=== PATIENT | female | born 1985 | race Caucasian/White ===

== ENCOUNTER 2019-12-02 14:55 | Emergency (ER) | payer OTHER, SELFPAY ==
[2019-12-02 15:06] VITALS: BP 126/86; PULSE 78; RESP 16; TEMP 37; O2SAT 98
--- NOTE | 2019-12-02 15:20 | ED.FEMALEGU ---
HPI - Female Genitourinary General Chief complaint: Urogenital-Female Stated complaint: uti Time Seen by Provider: 12/02/19 15:15 Source: patient and RN notes reviewed Mode of arrival: ambulatory Limitations: no limitations History of Present Illness HPI Narrative: Patient presents today complaining of dysuria, frequency, urgency, chills, mild low back pain since yesterday. She is currently menstruating. Denies vaginal discharge other than blood. Denies abdominal pain. She took a dose of Azo 1 hour prior to arrival. No recent antibiotic use. MD elicited complaint: dysuria Related Data Home Medications Medication Instructions Recorded Confirmed norgestrel-ethinyl estradiol tablet 12/02/19 [Low-Ogestrel (28)] Allergies Allergy/AdvReac Type Severity Reaction Status Date / Time No Known Allergies Allergy Mild Verified 05/24/09 03:16 Review of Systems Review of Systems: Narrative: CONSTITUTIONAL: Denies body aches, fever, or sweats.+ Chills EYES: Denies visual changes, redness, or discharge. ENT: Denies rhinorrhea, congestion, sore throat, or otalgia. CARDIOVASCULAR: Denies chest pain, palpitations, or edema. RESPIRATORY: Denies cough or dyspnea. GASTROINTESTINAL: Denies abdominal pain, nausea, vomiting, or diarrhea. GENITOURINARY: Denies hematuria.+ Dysuria, urgency, frequency SKIN: Denies rash, itching, or wounds. MUSCULOSKELETAL: Denies joint pain, or myalgia.+ Low back pain NEUROLOGIC: Denies headache, numbness, tingling, or weakness. PSYCH: Denies depression or anxiety. PMFSH Comments At time of signature, I have reviewed and agree with nursing past medical, surgical, social and family history unless otherwise noted. Please see nursing chart for further information. There is no relevant family history pertinent to the presenting complaint Exam Narrative: Exam Narrative: GENERAL: Well-appearing, well-nourished, and in no acute distress. HEAD: Normocephalic, atraumatic. EYES: EOMI. No redness or drainage. Conjunctivae normal. ENT: Mucous membranes pink and moist. NECK: Normal AROM. CHEST: No respiratory distress. Clear to auscultation. HEART: Regular rate and rhythm. No murmur appreciated. Normal peripheral pulses. ABDOMEN: Soft, nondistended, normal active bowel sounds.+ Mild suprapubic tenderness.-CVAT MUSCULOSKELETAL: No bony tenderness. EXTREMITIES: Normal range of motion. No edema. SKIN: Warm, dry, no rash. Capillary refill normal. Normal skin turgor. NEURO: No focal deficits. Alert and oriented x3. Gait steady. PSYCH: Normal affect. No signs of depression or anxiety. Course Vital Signs Vital signs: Vital Signs Temperature 98.6 F 12/02/19 15:06 Pulse Rate 78 12/02/19 15:06 Respiratory Rate 16 12/02/19 15:06 Blood Pressure 126/86 12/02/19 15:06 Pulse Oximetry 98 12/02/19 15:06 Temperature 98.6 F 12/02/19 15:06 Pulse Rate 78 12/02/19 15:06 Respiratory Rate 16 12/02/19 15:06 Blood Pressure 126/86 12/02/19 15:06 Pulse Oximetry 98 12/02/19 15:06 Reviewed. Pt has been instructed to follow up with her PCP regarding her elevated blood pressure today. MDM - Female Genitourinary Differential Diagnosis Differential diagnosis: Likely urinary tract infection, vaginitis, cystitis and other (Pyelonephritis, kidney stone) Lab Data Attestation: I reviewed the patient's lab results. Labs: Unable to result urine dipstick due to dark orange color of urine. Will send for culture. Critical Care Time Critical Care Time Critical Care Time: No Discharge Plan Discharge Clinical Impression: Urinary tract infection Qualifiers: Urinary tract infection type: acute cystitis Hematuria presence: without hematuria Qualified Code(s): N30.00 - Acute cystitis without hematuria Patient Disposition: Home, Self-Care Condition: Stable Instructions: Antibiotic Form, Urinary Tract Infection in Women (DC) Additional Instructions: Your urine shows infection today.
== END 2019-12-02 15:31 | disposition home or self-care (01) ==
PROVIDERS: Emergency Provider Nurse Practitioner; PCP Family Medicine
DX: N30.00 Acute cystitis without hematuria (principal); Z98.84 Bariatric surgery status
CPT/HCPCS: 87086; 87088; 99213; G0463

== ENCOUNTER 2020-08-14 08:16 | Emergency (ER) | payer OTHER, SELFPAY ==
[2020-08-14 08:33] VITALS: BP 143/83; PULSE 81; RESP 16; TEMP 36.8; O2SAT 99
--- NOTE | 2020-08-14 08:39 | ED.FEMALEGU ---
HPI - Female Genitourinary General Chief complaint: Urogenital-Female Stated complaint: possible uti Source: patient and RN notes reviewed Mode of arrival: ambulatory Limitations: no limitations History of Present Illness HPI Narrative: 34 yo female presents to the urgent care with complaints of urinary symptoms. Patient states that the symptoms woke her up about 12:30 in the morning. Has suprapubic discomfort, urgency, burning, frequency. Patient states she had something similar several months ago. Patient reports that she took some Azo prior to arrival. No CVA tenderness. No chest pain, shortness of breath, fevers, nausea, vomiting or diarrhea Related Data Allergies Allergy/AdvReac Type Severity Reaction Status Date / Time No Known Allergies Allergy Mild Verified 08/14/20 08:28 Review of Systems Review of Systems: Narrative: CONSTITUTIONAL: Denies fever, chills, or sweats. EYES: Denies visual changes, redness, or discharge. ENT: Denies rhinorrhea, congestion, sore throat, or otalgia. CARDIOVASCULAR: Denies chest pain, palpitations, or edema. RESPIRATORY: Denies cough or dyspnea. GASTROINTESTINAL: Denies abdominal pain, nausea, vomiting, or diarrhea. GENITOURINARY: Positive for dysuria, frequency, discoloration, strong smell SKIN: Denies rash or itching. MUSCULOSKELETAL: Denies back pain, joint pain, or myalgia. NEUROLOGIC: Denies headache, numbness, or weakness. PSYCHIATRIC: Denies anxiety or depression. All other systems reviewed are negative, except as documented in HPI. PMFSH Comments At the time of my signature, I reviewed and agree with the nursing past medical, surgical, social, and family history. There is no relevant family history pertinent to the patient complaint. Exam Narrative: Exam Narrative: GENERAL: This is a well-nourished, well-developed patient, in no apparent distress. HEAD: normocephalic, atraumatic. EYES: PERRL. Sclera clear/white. Vision is grossly intact. EARS: External ears normal. CARDIOVASCULAR: Regular rate and rhythm without murmurs, gallops, or rubs. RESPIRATORY: Clear to auscultation. Breath sounds equal bilaterally. No wheezes, rales, or rhonchi. GASTROINTESTINAL: Abdomen soft, suprapubic tenderness, nondistended. No guarding. SKIN: warm, intact with no suspicious lesions or rash, good texture and turgor. NEURO: awake, alert, and oriented to person, place and time. There were no obvious focal neurologic abnormalities. EXTREMITIES: No clubbing, cyanosis, or edema. No joint tenderness, effusion, or edema noted. BACK: Nontender without deformity or crepitance. No flank tenderness. No CVA tenderness Course Vital Signs Vital signs: Vital Signs Temperature 98.2 F 08/14/20 08:33 Pulse Rate 81 08/14/20 08:33 Respiratory Rate 16 08/14/20 08:33 Blood Pressure 143/83 H 08/14/20 08:33 Pulse Oximetry 99 08/14/20 08:33 Temperature 98.2 F 08/14/20 08:42 Pulse Rate 81 08/14/20 08:42 Respiratory Rate 16 08/14/20 08:42 Blood Pressure 143/83 H 08/14/20 08:42 Pulse Oximetry 99 08/14/20 08:42 Reviewed. Discussed blood pressure was mildly elevated. States that she will follow-up with her primary care provider. MDM - Female Genitourinary Lab Data Attestation: I reviewed the patient's lab results. Labs: Urine Glucose Negative Reference Range: Negative Urine Bilirubin Negative Reference Range: Negative Urine Ketone Negative Reference Range: Negative Urine Specific [place] 1.005 Reference Range:1.001-1.035 Urine Blood 2+ Reference Range: Negative * * Urine pH 6.0
[2020-08-14 08:42] VITALS: BP 143/83; PULSE 81; RESP 16; TEMP 36.8; O2SAT 99
== END 2020-08-14 08:50 | disposition home or self-care (01) ==
PROVIDERS: Emergency Provider Nurse Practitioner
DX: N39.0 Urinary tract infection, site not specified (principal); Z98.84 Bariatric surgery status
CPT/HCPCS: 81003; 87077; 87086; 87088; 87186; 99213; G0463

== ENCOUNTER 2021-05-01 07:21 | Outpatient (CLI) | payer OTHER, SELFPAY ==
[2021-05-01 07:53] LABS: Basophils Percent Auto 0.5 % (0.2-1.2); Eosinophils Absolute Auto 0.2 K/mm3 (0-0.3); Eosinophils Percent Auto 3.4 % (0-4.4); Hematocrit 36.3 % (37.0-47.0); Hemoglobin 11.8 g/dL (12.0-15.0); Immature Granulocyte Absolute 0.01 K/mm3 (0.00-0.031); Immature Granulocyte Percent A 0.2 % (0-0.5); Lymphocytes Absolute Auto 1.74 K/mm3 (0.9-3.2); Lymphocytes Percent Auto 29.9 % (18.3-44.2); Mean Corpuscular HGB Conc 32.5 g/dl (32-36); Mean Platelet Volume 9.7 fl (7.4-10.4); Monocytes Absolute Auto 0.5 K/mm3 (0.1-0.6); Monocytes Percent Auto 7.7 % (2.6-8.5); Neutrophils Absolute Auto 3.4 K/mm3 (1.3-6.7); Neutrophils Percent Auto 58.3 % (45.5-73.1); Platelet Count Result 229 k/mm3 (150-375); Red Blood Count 4.22 M/mm3 (4.2-5.4); Red Cell Distribution Width 12.5 % (11.5-14.5); White Blood Count 5.8 K/mm3 (4.5-10.0)
[2021-05-01 08:01] LABS: Alanine Aminotransferase 11 U/L (4-35); Albumin Level 4.1 g/dL (3.5-5.1); Alkaline Phosphatase 73 U/L (38-126); Anion Gap 5 mmol/L (8-16); Aspartate Amino Transferase 19 U/L (14-36); Bilirubin,Total 0.2 mg/dL (0.2-1.3); Blood Urea Nitrogen 9 mg/dL (7-17); Carbon Dioxide 27 mmol/L (22-30); Chloride 108 mmol/L (98-107); Cholesterol 169 mg/dL (0-200); Estimated Glomerular Filt Rate > 60; Glucose 95 mg/dL (65-110); HDL Direct 66 mg/dL; Magnesium 1.8 mg/dL (1.6-2.3); Sodium 140 mmol/L (137-145); Triglycerides 78 mg/dL (<150)
[2021-05-01 08:12] LABS: LDL Cholesterol Direct 93 mg/dL
[2021-05-01 08:42] LABS: Vitamin D 25 Hydroxy 35.6 ng/mL
[2021-05-01 09:13] LABS: Vitamin B12 > 1000.0 pg/mL (239-931)
[2021-05-01 11:45] LABS: Iron 72 ug/dL (37-170); Percent Iron Saturation 17 % (20-50)
[2021-05-01 14:43] LABS: Folic Acid > 20.0 ng/mL (2.76->20)
[2021-05-05 10:11] LABS: Vitamin B1 8 nmol/L (8-30)
== END 2021-05-01 07:22 | disposition home or self-care (01) ==
PROVIDERS: PCP Family Medicine; Visit Provider Family Medicine
DX: Z00.00 Encounter for general adult medical examination without abnormal findings (principal); Z13.220 Encounter for screening for lipoid disorders; Z13.1 Encounter for screening for diabetes mellitus; Z79.899 Other long term (current) drug therapy; Z98.84 Bariatric surgery status
CPT/HCPCS: 36415; 80048; 80061; 80076; 82306; 82607; 82728; 82746; 83036; 83540; 83550; 83735; 84425; 84443; 85025

== ENCOUNTER 2021-05-26 06:36 | Outpatient (CLI) | payer OTHER, SELFPAY ==
--- NOTE | ~2021-05-26 | MR_ITS ---
EXAMINATION: MRA brain wo con EXAM DATE: 05/26/2021 07:27 INDICATION: Family Hx Of Aneurysm Of Blood Vessel Of Brain, headache. TECHNIQUE: 3-D vori-ci-xikxen MRA of the intracranial arteries was performed without contrast. There is no prior study for comparison. FINDINGS: There is normal flow related signal seen within the vertebral, basilar and internal carotid arteries. There is no proximal stenosis. There are no aneurysms identified. Both A1 and P1 segments are pat ent. Flow in the cerebral arteries is symmetric. The vertebral arteries are codominant. IMPRESSION: Normal MRA brain exam. Reviewed, dictated and finalized at location B. IMPRESSION: Normal MRA brain exam.
== END 2021-05-26 06:37 | disposition home or self-care (01) ==
PROVIDERS: PCP Family Medicine; Visit Provider Family Medicine
DX: R51.9 Headache, unspecified (principal); Z82.49 Family history of ischemic heart disease and other diseases of the circulatory system
CPT/HCPCS: 70544

== ENCOUNTER 2021-09-03 13:41 | Emergency (ER) | payer OTHER, SELFPAY ==
[2021-09-03 13:48] VITALS: BP 139/93; PULSE 95; RESP 16; TEMP 36.4; O2SAT 100
--- NOTE | 2021-09-03 13:53 | ED.FEMALEGU ---
HPI - Female Genitourinary General Chief complaint: Urogenital-Female Stated complaint: UTI Time Seen by Provider: 09/03/21 13:42 Source: patient, RN notes reviewed and old records reviewed Mode of arrival: ambulatory Limitations: no limitations History of Present Illness HPI Narrative: 35-year-old female presents to the [facility] with complaints of I have a UTI. States she has had burning, urgency since late last night. Has taken Azo with minimal relief. History of UTIs. Denies abdominal pain, chest pain. Denies nausea vomiting diarrhea. Denies back pain or fevers. MD elicited complaint: UTI Related Data Allergies Allergy/AdvReac Type Severity Reaction Status Date / Time No Known Allergies Allergy Mild Verified 09/03/21 13:56 Review of Systems Review of Systems: All systems reviewed & are unremarkable except as noted in HPI and below Constitutional: Constitutional: Reports no additional constitutional complaints, Denies chills and Denies fatigue Eyes: Eyes: Reports no additional eye complaints ENT: Reports system reviewed and no additional complaints, except as documented Cardiovascular: Cardiovascular: Reports no additional cardiovascular complaints Respiratory: Respiratory: Reports no additional respiratory complaints, Denies cough and Denies dyspnea Gastrointestinal: Gastrointestinal: Reports no additional gastrointestinal complaints, Denies abdominal pain, Denies diarrhea, Denies nausea and Denies vomiting Genitourinary: Genitourinary: Reports as per HPI, Reports hematuria, Reports nocturia, Reports dysuria, Denies flank pain and Denies vaginal discharge Musculoskeletal: Musculoskeletal: Reports no additional musculoskeletal complaints and Denies back pain Integumentary/Breasts: Skin/Breast: Reports system reviewed and no additional complaints, except as docu Neurologic: Reports system reviewed and no additional complaints, except as documented Psychiatric: Psychiatric: Reports no additional psychiatric complaints Endocrine: Endocrine: Denies fatigue Allergic/Immunologic: Allergic/Immunologic: Reports no additional allergic/immunologic complaints PMFSH Past Medical History Medical History (Updated 09/03/21 @ 19:03 by Shima Diego) No significant medical problems Surgical History Surgical History (Updated 09/03/21 @ 19:03 by Shima Diego) No pertinent past surgical history Comments At the time of my signature, I reviewed and agree with the nursing past medical, surgical, social, and family history. There is no relevant family history pertinent to the patient complaint. Exam Const: General: healthy appearing, no acute distress and alert Nutritional Appearance: well nourished Orientation/consciousness: patient oriented x3 Limitations: no limitations HENMT: Head: normal to inspection Ears: external ears normal Eyes: Conjunctivae: conjunctivae normal Pupils: Equal, round and reactive pupils present Neck: Neck: normal visual inspection, no lymphadenopathy and no meningeal signs Chest: Chest palpation & inspection: normal inspection of the chest and abnormal inspection of the chest Resp: Effort & Inspection: normal respiratory effort Auscultation: clear to auscultation bilaterally Cardio: Rate: regular rate Rhythm: regular rhythm GI: GI Palp: Yes Soft to palpation and No Tenderness to palpation present (GI) : General: Yes no CVA tenderness Back/Spine/Pelvis: Back: no CVA tenderness Skin: General skin exam: normal color Rashes: no rashes Wounds: no wounds Neuro: General: patient oriented x3, moves all extremities, no meningeal signs and no focal motor deficits Cranial nerves: Yes Equal, round and reactive pupils present Speech: normal speech Gait exam (Neuro): Normal gait present Extrem: General: normal to inspection Psych: Mental Status: mental status grossly normal Affect: normal affect Attitude: cooperative Thought content: Yes Normal thought content present
== END 2021-09-03 14:01 | disposition home or self-care (01) ==
PROVIDERS: Emergency Provider Nurse Practitioner; PCP Family Medicine
DX: N30.01 Acute cystitis with hematuria (principal); Z98.84 Bariatric surgery status
CPT/HCPCS: 81003; 87086; 99213; G0463

== ENCOUNTER 2022-01-25 13:11 | Emergency (ER) | payer OTHER, SELFPAY ==
[2022-01-25 13:17] VITALS: BP 136/76; PULSE 81; RESP 16; TEMP 36.9; O2SAT 100
--- NOTE | 2022-01-25 13:25 | ED.FEMALEGU ---
HPI - Female Genitourinary General Chief complaint: Urogenital-Female Stated complaint: uti symptoms Time Seen by Provider: 01/25/22 13:31 Source: patient and RN notes reviewed Mode of arrival: ambulatory Limitations: no limitations History of Present Illness HPI Narrative: 36-year-old female presents with concern for urinary tract infections. She reports since yesterday she has had urine frequency, urgency, suprapubic pressure. She denies back pain, flank pain, abdominal pain, nausea, vomiting, fever. She reports she tried increasing water intake but symptoms persisted today. MD elicited complaint: UTI Related Data Home Medications Medication Instructions Recorded Confirmed alprazolam 0.5 mg tablet tablet 01/25/22 trazodone 100 mg tablet tablet 01/25/22 Allergies Allergy/AdvReac Type Severity Reaction Status Date / Time No Known Allergies Allergy Mild Verified 09/03/21 13:56 Review of Systems Review of Systems: CONSTITUTIONAL: Denies malaise, chills, sweats, or fever. CARDIOVASCULAR: Denies chest pain, palpitations, or edema. RESPIRATORY: Denies cough or dyspnea. GASTROINTESTINAL: Denies abdominal pain, nausea, vomiting, diarrhea GENITOURINARY: Reports frequency, urgency, suprapubic pressure. Denies flank pain or hematuria. SKIN: Denies rash or itching. MUSCULOSKELETAL: Denies back pain or myalgia. All systems reviewed & are unremarkable except as noted in HPI and below PMFSH Past Medical History Medical History (Updated 01/25/22 @ 13:40 by Shima Dailey NP) No significant medical problems Surgical History Surgical History (Updated 09/03/21 @ 19:03 by Shima Diego APRN) No pertinent past surgical history Comments At time of signature, agree with nursing past medical, surgical, social and family history. There is no relevant family history pertinent to the presenting complaint Exam Narrative: GENERAL: Well-appearing, well-nourished, and in no acute distress. HEAD: Normocephalic. EYES: PERRLA, conjunctivae clear. NECK: Supple. No lymphadenopathy CHEST: Clear to auscultation. No respiratory distress. HEART: Regular rate and rhythm. ABDOMEN: Soft, nontender upon palpation, nondistended, normal active bowel sounds, no palpable or pulsatile masses, no guarding. No CVA tenderness SKIN: Warm, dry, no rash. NEURO: Alert and oriented x3. PSYCH: Normal mood and affect Course Course Emergency Course: Antibiotic choice based on culture from previous UTI Patient is aware of diagnosis, understands and agrees to treatment plan. Anticipatory guidance given. Patient agrees to follow-up as directed and is aware of reasons to seek care at the emergency department. Portions of this record may have been created with voice recognition software Level of Care: Express Care Visit Vital Signs Vital signs: Vital Signs Temperature 98.5 F 01/25/22 13:17 Pulse Rate 81 01/25/22 13:17 Respiratory Rate 16 01/25/22 13:17 Blood Pressure 136/76 01/25/22 13:17 Pulse Oximetry 100 01/25/22 13:17 Oxygen Delivery Room Air 01/25/22 13:17 Temperature 98.5 F 01/25/22 13:17 Pulse Rate 81 01/25/22 13:17 Respiratory Rate 16 01/25/22 13:17 Blood Pressure 136/76 01/25/22 13:17 Pulse Oximetry 100 01/25/22 13:17 Oxygen Delivery Room Air 01/25/22 13:17 Reviewed. Patient has been instructed to follow up with her primary care provider within the next week regarding her elevated blood pressure today. MDM - Female Genitourinary MDM Narrative Medical decision making narrative: Exam findings and UA show no acute concerns or changes; patient is non-toxic appearing and is in no distress. Patient is appropriate for outpatient treatment and follow-up. Differential Diagnosis Differential diagnosis: Likely urinary tract infection and cystitis Critical Care Time Critical Care Time Critical Care Time: No Discharge Plan Discharge Clinical Impression: Symptoms of urinary tract inf
== END 2022-01-25 13:48 | disposition home or self-care (01) ==
PROVIDERS: Emergency Provider Nurse Practitioner
DX: R35.0 Frequency of micturition (principal); R39.15 Urgency of urination; R10.30 Lower abdominal pain, unspecified
CPT/HCPCS: 81003; 87077; 87086; 87186; 99213; G0463

== ENCOUNTER 2022-02-09 15:33 | Outpatient (CLI) | payer OTHER, SELFPAY ==
--- NOTE | ~2022-02-09 | MR_ITS ---
EXAMINATION: MR hip RT wo con DATE: 02/09/2022 16:46 INDICATION: Right groin pain TECHNIQUE: Magnetic resonance imaging (MRI) of the right hip was performed without intravenous contr ast. Sequences included full-field axial PD-weighted FS FSE and T1-weighted FSE, coronal of the pelvi s with PD-weighted FS FSE, T2-weighted FSE and T1-weighted FSE, small field of view of the right hip with axial PD-weighted FS FSE, sagittal PD-weighted FS FSE, coronal PD-weighted FS FSE and coronal T2 weighted FSE. Additional radial T1-weighted FGR oriented orthogonal to the acetabular rim were obt ained for evaluation of the labrum. COMPARISON: None FINDINGS: Bones/labrum/cartilage: Alignment is normal. No fracture, avascular necrosis or pathologic marrow replacing process. Anterio r acetabular over coverage at the left hip with crossover sign evident on the prior radiograph of the pelvis obtained as part of an obstructive series on 05/24/2009. There is mild right hip osteoarthrit is with partial thickness cartilage loss at the posterior aspect of the joint space and anterosuperio rly where there is also small amount of subarticular cystlike change at the anterosuperior left aceta bulum. Relatively symmetric slightly more prominent cystlike changes at the anterosuperior left aceta bulum which is not diagnostically evaluated on the larger field of view images. Mild degenerative tea ring of the anterosuperior right acetabular labrum. Fluid: Symmetric physiologic amount of fluid within both hip joints. Soft tissues: Normal and symmetric muscle bulk and signal in the pelvis and visualized proximal thighs. The iliopso as, left gluteal and proximal hamstring tendons are normal. There is increased fluid signal at the an terior right greater trochanter consistent with mild left gluteus medius minimus bursitis. There is m oderate right gluteus minimus minimus tendinopathy and mild left gluteus medias tendinopathy without discrete tears. Low signal intensity T-shaped IUD in expected position within the endometrial canal o f the anteverted uterus. Limited evaluation of visceral organs of the pelvis is otherwise unremarkabl e. No pathologically enlarged pelvic/inguinal lymphadenopathy. IMPRESSION: 1. Right gluteus medius minimus bursitis with moderate left gluteus minimus minimus and mild gluteus left medius tendinopathy without discrete tears. 2. 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 3. Mild degeneration along the anterosuperior right acetabular labrum. 4. IUD in expected position within the anteverted uterus. Reviewed, dictated and finalized at location B. IMPRESSION: 1. Right gluteus medius minimus bursitis with moderate left gluteus minimus min imus and mild gluteus left medius tendinopathy without discrete tears. 2. Mild bilateral hip osteoarthritis with small region of high-grade chondral m alacia with underlying subarticular cystlike changes at the anterosuperior aspe ct of the bilateral acetabula, left slightly more prominent than right. 3. Mild degeneration along the anterosuperior right acetabular labrum. 4. IUD in expected position within the anteverted uterus.
== END 2022-02-09 15:34 | disposition home or self-care (01) ==
PROVIDERS: Visit Provider Orthopaedic Surgery
DX: M25.551 Pain in right hip (principal); M16.11 Unilateral primary osteoarthritis, right hip; Z97.5 Presence of (intrauterine) contraceptive device
CPT/HCPCS: 73721

== ENCOUNTER 2022-03-27 13:06 | Outpatient (CLI) | payer OTHER, SELFPAY ==
--- NOTE | ~2022-03-27 | XR_ITS ---
EXAMINATION: XR lg joint inject/asp w image DATE: 03/27/2022 13:44 INDICATION: Right hip osteoarthritis. TECHNIQUE: A time-out was performed to verify the patient's name, date of , and procedure to b e performed. The procedure including the risks, benefits, and alternatives was discussed with the pat ient. Risks discussed included bleeding and infection. The patient understood the risks and agreed to proceed. The skin overlying the right hip joint was prepped and draped in usual sterile fashion. A nesthetic was administered with 1% lidocaine subcutaneously. A 22 G needle was advanced under fluoro scopic guidance into the joint. Subsequently, injectate consisting of 3 mL 1% lidocaine and 1 mL 80 mg/mL Depo-Medrol was instilled. The needle was removed and the entry site was cleaned and dressed. There were no immediate complications. Fluoroscopy exposure time was 0.1 minutes. The total number o f images was 1. FINDINGS: Real-time fluoroscopy demonstrates the needle in the right hip joint. Patient's pain prior to procedure:3/10. Patient's pain following the procedure: 0/10. IMPRESSION: 1. Fluoroscopy guided right hip joint injection of local anesthetic and steroid with decrease in the patient's presenting pain. Reviewed, dictated and finalized at location A.
== END 2022-03-27 13:07 | disposition home or self-care (01) ==
PROVIDERS: PCP Family Medicine; Visit Provider Orthopaedic Surgery
DX: M16.11 Unilateral primary osteoarthritis, right hip (principal)
CPT/HCPCS: 20610; 77002; J1040

== ENCOUNTER 2022-11-08 15:43 | Outpatient (CLI) | payer OTHER, SELFPAY ==
--- NOTE | ~2022-11-08 | US_ITS ---
US soft tissue groin RT 11/08/2022 16:06 Indication: Right groin pain. Evaluate for hernia. Procedure: High-resolution ultrasound of the right groin Comparison: No prior studies for comparison. Findings: Normal heterogeneous soft tissues in the right groin. No hernia is identified. No abnormal masses or fluid collections. Impression: 1: No evidence for right inguinal hernia. Reviewed, dictated and finalized at location L. Impression: 1: No evidence for right inguinal hernia.
== END 2022-11-08 15:44 | disposition home or self-care (01) ==
PROVIDERS: PCP Family Medicine; Visit Provider Surgery
DX: R10.31 Right lower quadrant pain (principal)
CPT/HCPCS: 76882

== ENCOUNTER 2022-12-13 07:43 | Outpatient (CLI) | payer OTHER, SELFPAY ==
[2022-12-13 09:02] LABS: Basophils Percent Auto 0.5 % (0.2-1.2); Eosinophils Absolute Auto 0.2 K/mm3 (0-0.3); Hematocrit 37.3 % (37.0-47.0); Hemoglobin 11.8 g/dL (12.0-15.0); Immature Granulocyte Absolute 0.02 K/mm3 (0.00-0.031); Immature Granulocyte Percent A 0.4 % (0-0.5); Lymphocytes Absolute Auto 1.44 K/mm3 (0.9-3.2); Lymphocytes Percent Auto 26.2 % (18.3-44.2); Mean Corpuscular HGB Conc 31.6 g/dl (32-36); Mean Corpuscular Hemoglobin 26.4 pg (26-34); Mean Corpuscular Volume 83.4 fl (80-100); Mean Platelet Volume 9.6 fl (7.4-10.4); Monocytes Absolute Auto 0.5 K/mm3 (0.1-0.6); Monocytes Percent Auto 8.2 % (2.6-8.5); Neutrophils Absolute Auto 3.3 K/mm3 (1.3-6.7); Neutrophils Percent Auto 60.7 % (45.5-73.1); Platelet Count Result 221 k/mm3 (150-375); Red Blood Count 4.47 M/mm3 (4.2-5.4); Red Cell Distribution Width 12.7 % (11.5-14.5); White Blood Count 5.5 K/mm3 (4.5-10.0)
[2022-12-13 09:18] LABS: Alanine Aminotransferase 30 U/L (6-35); Albumin Level 4.4 g/dL (3.5-5.1); Alkaline Phosphatase 85 U/L (38-126); Anion Gap 5 mmol/L (8-16); Aspartate Amino Transferase 36 U/L (14-36); Bilirubin,Total 0.4 mg/dL (0.2-1.3); Blood Urea Nitrogen 11 mg/dL (7-17); Calcium 8.5 mg/dL (8.4-10.2); Carbon Dioxide 29 mmol/L (22-30); Chloride 104 mmol/L (98-107); Cholesterol 159 mg/dL (0-200); Estimated Glomerular Filt Rate > 60; Glucose 89 mg/dL (65-110); HDL Direct 88 mg/dL; Potassium 4.2 mmol/L (3.4-5.0); Sodium 138 mmol/L (137-145); Triglycerides 60 mg/dL (<150)
[2022-12-13 09:28] LABS: LDL Cholesterol Direct 69 mg/dL
[2022-12-13 09:59] LABS: Vitamin D 25 Hydroxy 42.9 ng/mL
[2022-12-14 09:19] LABS: Iron 58 ug/dL (37-170)
[2022-12-14 09:29] LABS: Percent Iron Saturation 12 % (20-50)
[2022-12-14 09:57] LABS: Ferritin 7.17 ng/mL (6.24-137)
[2022-12-18 05:59] LABS: Thyroid Peroxidase Antibodies 1 IU/mL (<9)
== END 2022-12-13 07:44 | disposition home or self-care (01) ==
PROVIDERS: PCP Internal Medicine; Visit Provider Clinical Nurse Specialist
DX: Z13.228 Encounter for screening for other metabolic disorders (principal); Z13.220 Encounter for screening for lipoid disorders; F41.9 Anxiety disorder, unspecified; L65.9 Nonscarring hair loss, unspecified; E55.9 Vitamin D deficiency, unspecified; D64.9 Anemia, unspecified
CPT/HCPCS: 36415; 80053; 80061; 82306; 82607; 82728; 82746; 83540; 83550; 84443; 85025; 86376

== ENCOUNTER 2023-06-26 14:33 | Outpatient (CLI) | payer OTHER, SELFPAY ==
[2023-06-26 16:14] LABS: Hemoglobin 10.2 g/dL (12.0-15.0); Mean Corpuscular Hemoglobin 24.3 pg (26-34); Mean Corpuscular Volume 81.1 fl (80-100); Platelet Count Result 285 k/mm3 (150-375); Red Blood Count 4.19 M/mm3 (4.2-5.4); Red Cell Distribution Width 13.3 % (11.5-14.5); White Blood Count 6.6 K/mm3 (4.5-10.0)
[2023-06-26 16:38] LABS: Albumin Level 4.3 g/dL (3.5-5.1); Anion Gap 9 mmol/L (8-16); Blood Urea Nitrogen 16 mg/dL (7-17); Carbon Dioxide 24 mmol/L (22-30); Chloride 103 mmol/L (98-107); Estimated Glomerular Filt Rate > 60; Glucose 94 mg/dL (65-110); Potassium 3.9 mmol/L (3.4-5.0); Sodium 136 mmol/L (137-145)
[2023-06-26 19:50] LABS: Iron 30 ug/dL (37-170)
[2023-07-02 15:33] LABS: Vitamin B1 82
== END 2023-06-26 14:34 | disposition home or self-care (01) ==
LOC: ANHLAB 14:34
PROVIDERS: PCP Internal Medicine; Visit Provider Surgery Plastic and Reconstructive Surgery
DX: Z98.84 Bariatric surgery status (principal)
CPT/HCPCS: 36415; 80048; 82040; 83540; 84134; 84425; 85027

== ENCOUNTER 2023-07-11 01:13 | Day surgery (SDC) | payer OTHER, SELFPAY ==
[2023-07-09 12:00] VITALS: BMI 30.7
--- NOTE | 2023-07-09 12:02 | PC.NURSE ---
Report to the Outpatient Waiting Room, entrance under the green pavilion located off [facility], at time 0830 on date 07/11/23. Planned Procedure Time: 1030. Time changes happen often and if your time is changed the preop area will call you the afternoon before. - You and your visitor will be asked to self-screen and do not enter if you have any COVID symptoms. - A mask is optional within the hospital at this time. Patients may have clear liquids (water, carbonated beverages, clear teas, apple juice) until 3 hours prior to surgery (0730) with a maximum of 20 ounces. - No food from midnight until time of surgery Take the following medications with a SIP of water the morning of surgery: NONE DO NOT STOP ANY OF YOUR OTHER PRESCRIPTION MEDICATIONS PRIOR TO SURGERY ?EXCEPT THE FOLLOWING Medications to discontinue per physician: VITAMINS Date to take last dose: NO MORE UNTIL AFTER SURGERY Please no make-up, nail telugu, hairspray, perfume, deodorant, or body powder the day of surgery. No jewelry (including any body piercings) or valuables the day of surgery, leave them at home. Please take a shower or bath the night before, or the morning of, surgery with an antibacterial soap. Wear comfortable, loose fitting clothing. - Jewelry must be removed prior to entering the operating room. Rings and piercings that are not removed may be cut off. - The hospital will not accept responsibility for valuables. - Please leave all valuables, including medications, at home the day of surgery. If you are going home after surgery, a licensed car driver must drive you home. - NO public transportation without another adult if you receive anesthesia. - We recommend that an adult stay with you for 24 hours following discharge. - We also recommend that you do not drive, make important decision, drink alcoholic beverages, or take any drugs that were not prescribed by your health care provider for at least 24 hours after your discharge time. Follow any additional instructions given to you from your surgeon. If you or anyone in your household have experienced Covid symptoms in the past week, please notify your surgeon or the nurse liaison at the phone number below for possible testing. Telephone instructions given to PT - ANDRAE ALMANZA and asked if any additional questions and then verbalized understanding. Patient advised to call surgeon office or pre surgery nurse liaison [phone] if any additional questions.
[2023-07-11] VITALS (12 sets, daily range): BP systolic 111–160; BP diastolic 60–90; PULSE 73–96; RESP 12–20; TEMP 37.1; O2SAT 100
[2023-07-11 08:58] LABS: Urine Cotinine NEGATIVE
[2023-07-11] MEDS: LACTATED RINGERS 1,000 ML 30 ML IV CONT ×2 (09:00→13:37)
--- NOTE | 2023-07-11 09:22 | WPDANESEPPF ---
Anes - Initial Pre Proc Eval Procedure: Operation Date: 07/11/23 10:30 Proposed Procedures p Bilateral Brachioplasty - Rohan oHuse MD Date/Time: 07/11/23 09:22 Surgeon: Rohan House MD Pre Op Diagnosis: Skin Laxity Patient Data Age: 37 Gender: F Height: 1.65 m Weight: 83.9 kg Allergies Allergy/AdvReac Type Severity Reaction Status Date / Time No Known Allergies Allergy Mild Verified 07/11/23 08:34 Home Medications Medication Instructions Recorded Confirmed Type ferrous sulfate 325 mg (65 mg 325 mg PO DAILY 10/31/22 07/11/23 History iron) tablet multivitamin 1 tablet PO DAILY 10/31/22 07/11/23 History omega-3 fatty acids 1,000 mg 1,000 mg PO DAILY 10/31/22 07/11/23 History capsule vitamin B complex (B 1 tablet PO DAILY 10/31/22 07/11/23 History Complex-Vitamin B12 tablet) alprazolam 0.5 mg tablet 0.5 mg PO TID PRN anxiety #30 tabs 07/05/23 07/11/23 Rx fluoxetine 20 mg capsule 20 mg PO DAILY #30 caps 07/05/23 07/11/23 Rx Laboratory Tests 07/11/23 08:40 Cotinine Negative Patient hx anesthesia problems: none Family hx anesthesia problems: none Results Review: All pre-operative results and documents have been reviewed as part of the pre-operative evaluation. [facility] [place] Past Medical History Medical History GERD (gastroesophageal reflux disease) History of hypertension Surgical History Surgical History History of abdominoplasty History of breast augmentation History of gastric bypass History of laparoscopic cholecystectomy No pertinent past surgical history Family History Family History Father Hyperlipidemia Mother Hypertension Social History Social History Smoking status: Never smoker Alcohol intake: current Drinks per week: 2 Alcohol use details: Social alcohol use Substance use: never Substance use type: does not use Lack of Transportation: No Lack of Food: Never True Current Housing: I Have Housing Concerned About Future Housing: No Difficulty Paying Gas/Electric Bills: No Difficulty Paying for Meds: No Currently Unemployed: No Education: Master's Degree or Higher Difficulty w/ Childcare or Family Care: No Living arrangements: with family Additional living arrangements comments: CHILDREN Occupation/Education: occupation 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 Informed Consent: The patient's anesthetic plan and its attendant risks and benefits were discussed with the patient/family/POA. Questions were solicited and answers provided to the satisfaction of the patient/family/POA.
--- NOTE | 2023-07-11 09:45 | SUR.PREOP ---
0850-Unable to obtain foot IV x 2RNs-1 stick each.
--- NOTE | 2023-07-11 10:28 | WPDHPUPDATE1 ---
History and Physical Update Update Date/Time: 07/11/23 10:28 History and Physical has been reviewed, including an updated exam of the patient. There are NO changes in the patient's condition. Risks, benefits, and alternatives have been discussed and questions answered. Patient agrees to proceed with procedure.
--- NOTE | 2023-07-11 10:29 | W.PM.PROC2 ---
Procedure Note - Detailed Date of Procedure 07/11/23 Pre-op Diagnosis Skin Laxity Post-op Diagnosis Same Procedure Performed Bilateral brachioplasty Surgeon Rohan House MD Anesthesia General Findings Lipoaspirate: 600 cc Description of Procedure Here for the above procedures. Preoperatively risks, benefits, alternatives were discussed again today in extensive detail. I want to be very realistic about the risks involved as well as expectations. Made sure answered all of their questions to satisfaction. They voiced a clear understanding. Consent obtained. Patient was marked in the preoperative holding area with their verification. Taken to the operating placed supine on the operating table. Anesthesia was provided by anesthesiology. Prepped and draped in a standard sterile fashion. Surgical time-out was taken. Stab incisions were made and I tumesced with a tumescent solution. Once adequate time for hemostasis suction lipectomy was with a 4 mm basket cannula based on S.A.F.E. technique. This was completed based on preoperative planning, intraoperative observation, and rolling pinch test which was in full agreement. I completely de-fatted the planned resection area and a strip avulsion technique was completed. Starting proximal to distal a 10 blade was used to excise the intervening skin and this was tacked as we proceed to ensure good closure. This was closed using a 2-0 Quill, 3-0 strata fix, running subcuticular 4-0 Monocryl, and tissue glue. Dressings were placed. Tolerated the procedure well. Taken to the PACU without difficulty. All instrument sponge counts were correct at the end of the case. Estimated Blood Loss 25 Drains No Packing No Pathology None sent Complications No immediate complications Condition Stable Disposition PACU
[2023-07-11] MEDS: ceFAZolin 2 GM/D5W 50 ML 2 GM/50 ML BAG IVPB (11:07)
[2023-07-11] MEDS: TRANEXAMIC ACID 1,000MG/ISO100 1,000 MG/100 ML BAG 200 MG IVPB (11:28)
[2023-07-11] MEDS: LACTATED RINGERS IRRIG 1,000 ML, LIDOCAINE HCL 1% LOCAL INJ 50 ML, EPINEPHrine HCL INJ ... INFILTRATE (11:30)
[2023-07-11] MEDS: oxyCODONE HCL (*CRX) 5 MG TAB IR PO (15:42)
== END 2023-07-11 16:31 | disposition home or self-care (01) ==
PROVIDERS: PCP Internal Medicine; Visit Provider Surgery Plastic and Reconstructive Surgery
PROC: (CPT 15836; principal; 2023-07-11 10:30)
DX: Z41.1 Encounter for cosmetic surgery (principal); L57.4 Cutis laxa senilis; Z98.84 Bariatric surgery status
CPT/HCPCS: 15836; 15878; 80307; A9270; J0171; J0690; J1100; J1170; J2250; J2405; J2704; J3010; J7120

== ENCOUNTER 2023-10-21 09:39 | Emergency (ER) | payer OTHER, SELFPAY ==
[2023-10-21 09:48] VITALS: BP 126/75; PULSE 74; RESP 18; TEMP 36.6; O2SAT 100
--- NOTE | 2023-10-21 10:00 | ED.LOWEXIN ---
HPI - Extremity Injury (Lower) General Chief Complaint: Extremity Injury, Lower Stated Complaint: painful toe Time Seen by Provider: 10/21/23 10:00 Source: patient Mode of arrival: ambulatory Limitations: no limitations History of Present Illness HPI Narrative: 37 yo F presents with c/o redness, swelling and pain to R great toe. 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 Had a lose peice of skin that she picked off and immediately had pain because it was too deep. Few days later had redness. Apply RODRI. has intermittently had some yellow drainge. pt requesting antibiotics. All systems reviewed and negative except as noted above. Related Data Home Medications Medication Instructions Recorded Confirmed levonorgestrel 17.5 mcg/24 hrs 1 device intrauterine ONCE 10/21/23 10/21/23 (5yrs) 19.5mg intrauterine device (Kyleena) Allergies Allergy/AdvReac Type Severity Reaction Status Date / Time No Known Allergies Allergy Mild Verified 10/21/23 09:55 Review of Systems Review of Systems: CONSTITUTIONAL: Denies fever, chills, or sweats. EYES: Denies visual changes, redness, or discharge. ENT: Denies rhinorrhea, congestion, sore throat, or otalgia. CARDIOVASCULAR: Denies chest pain, palpitations, or edema. RESPIRATORY: Denies cough or dyspnea. GASTROINTESTINAL: Denies abdominal pain, nausea, vomiting, or diarrhea. GENITOURINARY: Denies dysuria or hematuria. SKIN: Denies rash or itching. reports redness, swelling and tenderness to R great toe. MUSCULOSKELETAL: Denies back pain, joint pain, or myalgia. NEUROLOGIC: Denies headache, numbness, or weakness. PSYCHIATRIC: Denies anxiety or depression. All other systems reviewed are negative, except as documented in HPI. [facility] Past Medical History Medical History GERD (gastroesophageal reflux disease) History of hypertension Surgical History Surgical History History of abdominoplasty History of breast augmentation History of gastric bypass History of laparoscopic cholecystectomy No pertinent past surgical history Family History Family History Father Hyperlipidemia Mother Hypertension Social History Social History Smoking status: Never smoker Alcohol intake: current Drinks per week: 2 Alcohol use details: Social alcohol use Substance use: never Substance use type: does not use Lack of Transportation: No Lack of Food: Never True Current Housing: I Have Housing Concerned About Future Housing: No Difficulty Paying Gas/Electric Bills: No Difficulty Paying for Meds: No Currently Unemployed: No Education: Master's Degree or Higher Difficulty w/ Childcare or Family Care: No Living arrangements: with family Additional living arrangements comments: CHILDREN Occupation/Education: occupation 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 There is no relevant family history pertinent to the presenting complaint. Exam Narrative: GENERAL: This is a well-nourished, well-developed patient, in no apparent distress. HEAD: normocephalic, atraumatic. EYES: PERRL. Sclera clear/white. Vision is grossly intact. EARS: External ears normal NOSE: External nose normal NECK: Neck supple, non-tender without lymphadenopathy, masses or thyromegaly. CARDIOVASCULAR: Regular rate and rhythm without murmurs, gallops, or rubs. RESPIRATORY: Clear to auscultation. Breath sounds equal bilaterally. No wheezes, rales, or rhonchi. SKIN: warm, Dry, intact with no suspicious lesions or rash
== END 2023-10-21 10:11 | disposition home or self-care (01) ==
PROVIDERS: Emergency Provider Nurse Practitioner Family; PCP Clinical Nurse Specialist
DX: L08.9 Local infection of the skin and subcutaneous tissue, unspecified (principal); K21.9 Gastro-esophageal reflux disease without esophagitis; I10 Essential (primary) hypertension; Z98.84 Bariatric surgery status
CPT/HCPCS: 99213; G0463

== ENCOUNTER 2023-11-15 00:50 | Day surgery (SDC) | payer OTHER, SELFPAY ==
[2023-11-07 11:07] VITALS: BMI 30.8
[2023-11-15] MEDS: LACTATED RINGERS 1,000 ML 150 ML IV CONT (09:24)
[2023-11-15 09:28] VITALS: BP 144/88; PULSE 72; RESP 18; TEMP 36.3; O2SAT 100
--- NOTE | 2023-11-15 09:36 | P.PNAN_ITS ---
Anes - Initial Pre Proc Eval Procedure: Operation Date: 11/15/23 10:30 Proposed Procedures p Esophagogastroduodenoscopy - Dave Schuster MD Date/Time: 11/15/23 09:36 Surgeon: Dave Schuster MD Pre Op Diagnosis: Dysphagia unspecified Patient Data Age: 37 Gender: F Height: 1.65 m Weight: 83 kg Last Vital Signs Temp 97.4 F L 11/15/23 09:28 Pulse 72 11/15/23 09:28 Resp 18 11/15/23 09:28 BP 144/88 H 11/15/23 09:28 Pulse Ox 100 11/15/23 09:28 O2 Del Method Room Air 11/15/23 09:28 Allergies Allergy/AdvReac Type Severity Reaction Status Date / Time No Known Allergies Allergy Mild Verified 11/15/23 09:27 Home Medications Medication Instructions Recorded Confirmed Type alprazolam 0.5 mg tablet 0.5 mg PO TID PRN anxiety #30 tabs 07/05/23 11/07/23 Rx fluoxetine 20 mg capsule 20 mg PO DAILY #30 caps 10/03/23 11/07/23 Rx levonorgestrel 17.5 mcg/24 hrs 1 device intrauterine ONCE 10/21/23 11/07/23 History (5yrs) 19.5mg intrauterine device (Kyleena) fluconazole 150 mg tablet 150 mg PO DAILY 1 dose #1 tablet 10/31/23 11/07/23 Rx Patient hx anesthesia problems: none Family hx anesthesia problems: none Results Review: All pre-operative results and documents have been reviewed as part of the pre- operative evaluation. [facility] Past Medical History Medical History GERD (gastroesophageal reflux disease) History of hypertension Surgical History Surgical History History of abdominoplasty History of breast augmentation History of gastric bypass History of laparoscopic cholecystectomy No pertinent past surgical history Family History Family History Father Hyperlipidemia Mother Hypertension Social History Social History Smoking status: Never smoker Alcohol intake: current Drinks per week: 5 Alcohol use details: Social alcohol use Substance use: never Substance use type: does not use Lack of Transportation: No Lack of Food: Never True Current Housing: I Have Housing Concerned About Future Housing: No Difficulty Paying Gas/Electric Bills: No Difficulty Paying for Meds: No Currently Unemployed: No Education: Master's Degree or Higher Difficulty w/ Childcare or Family Care: No Living arrangements: with family Additional living arrangements comments: CHILDREN Occupation/Education: occupation 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 Informed Consent: The patient's anesthetic plan and its attendant risks and benefits were discussed with the patient/family/POA. Questions were solicited and answers provided to the satisfaction of the patient/family/POA.
--- NOTE | 2023-11-15 10:20 | PM.HPGS ---
History of Present Illness History of Present Illness Consent: Risks, benefits, and alternatives have been discussed and questions answered. Patient agrees to proceed with procedure. Chief complaint: Dysphagia unspecified Narrative: Liz Burleson is a 37 year old female here for egd, never had one. Sensation of lump in throat, first time took omeprazole for 1 week and help but not any longer. She had gastric bypass for weight loss. Review of Systems Review of Systems: All systems reviewed & are unremarkable except as noted in HPI and below PMFSH Past Medical History Medical History (Updated 11/15/23 @ 10:21 by Dave Schuster MD) GERD (gastroesophageal reflux disease) History of hypertension Lump in throat Surgical History Surgical History History of abdominoplasty History of breast augmentation History of gastric bypass History of laparoscopic cholecystectomy No pertinent past surgical history Family History Family History Father Hyperlipidemia Mother Hypertension Social History Social History Smoking status: Never smoker Alcohol intake: current Drinks per week: 5 Alcohol use details: Social alcohol use Substance use: never Substance use type: does not use Lack of Transportation: No Lack of Food: Never True Current Housing: I Have Housing Concerned About Future Housing: No Difficulty Paying Gas/Electric Bills: No Difficulty Paying for Meds: No Currently Unemployed: No Education: Master's Degree or Higher Difficulty w/ Childcare or Family Care: No Living arrangements: with family Additional living arrangements comments: CHILDREN Occupation/Education: occupation 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 by the patient): Female Spiritual care concerns: No Meds Home Medications and Allergies Home Medications Medication Instructions Recorded Confirmed Type alprazolam 0.5 mg tablet 0.5 mg PO TID PRN anxiety #30 tabs 07/05/23 11/07/23 Rx fluoxetine 20 mg capsule 20 mg PO DAILY #30 caps 10/03/23 11/07/23 Rx levonorgestrel 17.5 mcg/24 hrs 1 device intrauterine ONCE 10/21/23 11/07/23 History (5yrs) 19.5mg intrauterine device (Kyleena) fluconazole 150 mg tablet 150 mg PO DAILY 1 dose #1 tablet 10/31/23 11/07/23 Rx Allergies Allergy/AdvReac Type Severity Reaction Status Date / Time No Known Allergies Allergy Mild Verified 11/15/23 09:27 Vital Signs Vital Signs - 24 hr 11/15/23 09:28 Temperature 97.4 F L Pulse Rate 72 Respiratory Rate 18 Blood Pressure 144/88 H Pulse Oximetry 100 Oxygen Delivery Room Air Exam Const: General: comfortable and no acute distress HENMT: Face/Nose/Sinus: Normal nares present Eyes: General: appearance normal, both eyes and all related structures Neck: Neck: no JVD Resp: Auscultation: clear to auscultation bilaterally Cardio: Rate: regular rate Rhythm: regular rhythm GI: Inspection: non-distended GI Palp: Yes Soft to palpation Skin: General skin exam: normal color Neuro: General: gait normal Speech: normal speech Extrem: General: normal to inspection Psych: Mental Status: mental status grossly normal Assessment and Plan Assessment and plan (1) Lump in throat: Code(s): R22.1 - Localized swelling, mass and lump, neck Status: Acute Assessment and Plan: egd with bx
[2023-11-15 10:35] VITALS: BP 105/61; PULSE 64; RESP 22; O2SAT 100
[2023-11-15 10:45] VITALS: BP 110/61; PULSE 68; RESP 21; O2SAT 100
[2023-11-15 10:55] VITALS: BP 135/81; PULSE 73; RESP 18; O2SAT 100
== END 2023-11-15 10:56 | disposition home or self-care (01) ==
PROVIDERS: PCP Clinical Nurse Specialist; Visit Provider Internal Medicine Gastroenterology
PROC: 0DJ08ZZ Inspection of Upper Intestinal Tract, Via Natural or Artificial Opening Endoscopic (ICD-10-PCS; CPT 43235; principal; 2023-11-15 10:30)
DX: K29.50 Unspecified chronic gastritis without bleeding (principal); Z98.84 Bariatric surgery status; E66.9 Obesity, unspecified; Z68.30 Body mass index [BMI] 30.0-30.9, adult
CPT/HCPCS: 43239; 88305; J2704; J7120

== ENCOUNTER 2023-12-06 14:54 | Outpatient (CLI) | payer OTHER, SELFPAY ==
[2023-12-06 15:17] LABS: Basophils Percent Auto 0.6 % (0.2-1.2); Eosinophils Absolute Auto 0.2 K/mm3 (0-0.3); Eosinophils Percent Auto 2.5 % (0-4.4); Hematocrit 38.2 % (37.0-47.0); Hemoglobin 12.2 g/dL (12.0-15.0); Immature Granulocyte Absolute 0.02 K/mm3 (0.00-0.031); Immature Granulocyte Percent A 0.3 % (0-0.5); Lymphocytes Absolute Auto 1.92 K/mm3 (0.9-3.2); Lymphocytes Percent Auto 28.2 % (18.3-44.2); Mean Corpuscular HGB Conc 31.9 g/dl (32-36); Mean Corpuscular Hemoglobin 27.5 pg (26-34); Mean Platelet Volume 9.7 fl (7.4-10.4); Monocytes Absolute Auto 0.6 K/mm3 (0.1-0.6); Monocytes Percent Auto 8.4 % (2.6-8.5); Neutrophils Absolute Auto 4.1 K/mm3 (1.3-6.7); Platelet Count Result 204 k/mm3 (150-375); Red Blood Count 4.44 M/mm3 (4.2-5.4); Red Cell Distribution Width 13.3 % (11.5-14.5); White Blood Count 6.8 K/mm3 (4.5-10.0)
[2023-12-06 15:30] LABS: Alanine Aminotransferase 33 U/L (6-35); Albumin Level 4.3 g/dL (3.5-5.1); Alkaline Phosphatase 83 U/L (38-126); Anion Gap 2 mmol/L (4-12); Aspartate Amino Transferase 31 U/L (14-36); Bilirubin,Total 0.3 mg/dL (0.2-1.3); Blood Urea Nitrogen 17 mg/dL (7-17); Calcium 9.1 mg/dL (8.4-10.2); Carbon Dioxide 31 mmol/L (22-30); Chloride 103 mmol/L (98-107); Estimated Glomerular Filt Rate > 60; Glucose 141 mg/dL (65-110); Sodium 136 mmol/L (137-145)
[2023-12-06 16:38] LABS: Iron 36 ug/dL (37-170)
[2023-12-06 16:50] LABS: Percent Iron Saturation 9 % (20-50)
[2023-12-06 17:15] LABS: Ferritin 7.97 ng/mL (6.24-137)
== END 2023-12-06 14:55 | disposition home or self-care (01) ==
LOC: ANHLAB 14:56
PROVIDERS: PCP Clinical Nurse Specialist; Visit Provider Clinical Nurse Specialist
DX: D64.9 Anemia, unspecified (principal); R74.8 Abnormal levels of other serum enzymes
CPT/HCPCS: 36415; 80053; 82728; 83540; 83550; 85025

== ENCOUNTER 2024-02-19 14:19 | Outpatient (CLI) | payer OTHER, SELFPAY | END 2024-02-19 14:20 | disposition home or self-care (01) | LOC: ANHAUDASC 14:21 | PROVIDERS: PCP Clinical Nurse Specialist; Visit Provider Clinical Nurse Specialist | DX: H90.3 Sensorineural hearing loss, bilateral (principal); H93.13 Tinnitus, bilateral; H61.23 Impacted cerumen, bilateral | CPT/HCPCS: 92557; 92567 ==

== ENCOUNTER 2024-08-12 15:13 | Outpatient (CLI) | payer OTHER, SELFPAY ==
[2024-08-13 12:03] LABS: LH 8.7 mIU/mL
== END 2024-08-12 15:14 | disposition home or self-care (01) ==
LOC: ANHGOSHLAB 15:15
PROVIDERS: PCP Clinical Nurse Specialist; Visit Provider Obstetrics & Gynecology
DX: N95.1 Menopausal and female climacteric states (principal)
CPT/HCPCS: 36415; 83001; 83002; 84443

== ENCOUNTER 2024-08-27 08:18 | Emergency (ER) | payer OTHER, SELFPAY ==
--- NOTE | 2024-08-27 08:22 | ED.URI ---
HPI - URI/Sore Throat General Chief Complaint: Upper Respiratory Infection Stated Complaint: FEVER/COUGH/BODY ACHES/TIRED/FLU A EXPOSURE Time Seen by Provider: 08/27/24 09:07 Source: patient, RN notes reviewed and old records reviewed Mode of arrival: ambulatory Limitations: no limitations History of Present Illness HPI Narrative: 38-year-old female presents to the [facility] with complaints of cough, fever, body aches, fatigue. Symptoms started Patient reports exposure to flu a Related Data Home Medications ?Medication ?Instructions ?Recorded ?Confirmed ?Last Taken ?Type levonorgestrel 17.5 mcg/24 hr (up 1 device intrauterine ONCE 10/21/23 12/02/23 Unknown History to 5 yrs) 19.5mg intrauterine device (Kyleena) collagen, hydrolyzed 1 tablet PO 12/02/23 12/02/23 Unknown History gram-ascorbate calcium 10 mg tablet ferrous sulfate 325 mg (65 mg 325 mg PO .QOD 12/02/23 12/02/23 Unknown History iron) tablet lansoprazole 15 mg capsule,delayed 15 mg PO .QOD 12/02/23 12/02/23 Unknown History release multivitamin 1 tablet PO DAILY 12/02/23 12/02/23 Unknown History Allergies Allergy/AdvReac Type Severity Reaction Status Date / Time No Known Allergies Allergy Mild Verified 12/02/23 14:52 Review of Systems Review of Systems: All systems reviewed & are unremarkable except as noted in HPI and below Constitutional: Constitutional: Reports as per HPI, Reports body ache(s) and Reports fever(s) ENT: Reports system reviewed and no additional complaints, except as documented Cardiovascular: Cardiovascular: Reports no additional cardiovascular complaints, Denies chest pain and Denies dyspnea Respiratory: Respiratory: Reports as per HPI, Denies chest congestion, Reports cough and Denies dyspnea Musculoskeletal: Musculoskeletal: Reports no additional musculoskeletal complaints Integumentary/Breasts: Skin/Breast: Reports system reviewed and no additional complaints, except as docu PMFSH Past Medical History Medical History Lump in throat History of hypertension GERD (gastroesophageal reflux disease) Surgical History Surgical History Status post brachioplasty BL 06/2023 History of breast augmentation History of abdominoplasty History of laparoscopic cholecystectomy History of gastric bypass No pertinent past surgical history Family History Family History Father Hyperlipidemia Mother Hypertension Social History Social History Smoking status: Never smoker Alcohol intake: current Drinks per week: 5 Alcohol use details: Social alcohol use Substance use: never Substance use type: does not use Lack of Transportation: No Lack of Food: Never True Current Housing: I Have Housing Concerned About Future Housing: No Difficulty Paying Gas/Electric Bills: No Difficulty Paying for Meds: No Currently Unemployed: No Education: Master's Degree or Higher Difficulty w/ Childcare or Family Care: No Living arrangements: with family Additional living arrangements comments: CHILDREN Occupation/Education: occupation 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 by the patient): Female Spiritual care concerns: No Comments At the time of my signature, I reviewed and agree with the nursing past medical, surgical, social, and family history. There is no relevant family history pertinent to the patient complaint. Exam Const: General: cooperative, healthy appearing, comfortable, no acute distress, well developed, alert and well nourished Nutritional Appearance: well nourished Orientation/consciousness: patient oriented x3 Limitations: no limitations HENMT: Head: normal to inspection Ears: hearing grossly normal bilaterally, external ears normal, TM's normal bilaterally, EAC's normal, mastoids normal and no periauricular adenopathy Mouth: Yes Normal oral and palatal mucosa present, Yes lip normal, Yes tongue normal and Yes moist mucous membranes Throat: posterior oropharynx normal, uvula midline and no uvular edema Eyes: General: appearance normal, both eyes and all related structures Alignment and Position: alignment normal Neck: Neck: normal visual inspection, full ROM, no lymphadenopathy and no meningeal signs Chest: Chest palpation & inspection: normal inspection of the chest Resp: Effort & Inspection: normal respiratory effort and able to speak in complete sentences Auscultation: clear to auscultation bilaterally, no crackles, no rales, no rhonchi and no wheezes Cardio: Rate: regular rate Skin: General skin exam: normal color and no rashes or lesions noted Neuro: General: patient oriented x3, gait normal, moves all extremities and no meningeal signs Cognition (Neuro): normal cognition Speech: normal speech Gait exam (Neuro): Normal gait present Extrem: General: normal to inspection, full ROM, capillary refill normal and normal gait Psych: Appearance: grossly normal and well kempt Mental Status: mental status grossly normal Speech and movement: Normal speech and movement present and Clear speech present Affect: normal affect Attitude: cooperative Course Course Level of Care: Express Care Visit Vital Signs Vital signs: Vital Signs Temperature 98 F 08/27/24 08:28 Pulse Rate 103 H 08/27/24 08:28 Respiratory Rate 16 08/27/24 08:28 Blood Pressure 131/91 H 08/27/24 08:28 Pulse Oximetry 100 08/27/24 08:28 Temperature 98 F 08/27/24 08:28 Pulse Rate 103 H 08/27/24 08:28 Respiratory Rate 16 08/27/24 08:28 Blood Pressure 131/91 H 08/27/24 08:28 Pulse Oximetry 100 08/27/24 08:28 Reviewed MDM - URI/Sore Throat MDM Narrative Medical decision making narrative: Patient sitting comfortably in exam. Nontoxic vitals stable. Patient in no acute distress. Patient presents 6 day history generalized body aches, fever for T. Flu and COVID are negative Patient requesting a work Patient appropriate for outpatient treatment with close follow-up Discharge instructions reviewed with patient, as well as provided in writing per nursing staff. The instructions also include specific and strict return/GO TO THE ER as well as f/u information. All questions have been answered, and the patient deny any further questions with discharge and discharge plan. Some parts of this dictation were generated by voice recognition software and may contain typographical and/or grammatical inaccuracies. Differential Diagnosis Differential diagnosis: Likely upper respiratory infection, sinusitis, viral infection, bronchitis, influenza and pharyngitis Lab Data Labs: Lab Results 08/27/24 Range/Units 09:12 POC Influenza A Ag Negative (Negative) POC Influenza B Ag Negative (Negative) POC SARS CoV-2 Ag Negative (Negative) Reviewed Critical Care Time Critical Care Time Critical Care Time: No Discharge Plan Discharge Clinical Impression: Influenza-like illness Patient Disposition: Home, Self-Care Condition: Stable Instructions: Antibiotic Form, Viral Syndrome (ED) Additional Instructions: Your rapid COVID test were negative Your rapid flu test was negative Your symptoms are likely due to a viral illness, which is not treated with antibiotics. Typically viral infections last 7-10 days, can linger for couple of weeks. It is very important to treat your symptoms. Drink plenty of water, Gatorade, Pedialyte, ice pops or Jell-O. -Alternate Tylenol and Motrin per package directions for fever or pain. You can alternate every 4 hours -Antihistamine medication such as Zyrtec/Claritin/Crystal during the day can help improve symptoms. -doing daily nasal irrigations can help relieve pressure your sinuses. Things like a Neti pot -Use Flonase twice a day for 5 days then daily to help reduce the inflammation and dry up your sinuses. -You can also use Mucinex. Be sure to drink plenty of water with this medication at least 8 ounces with every dose and it is important to drink 8 to 10 glasses of water per day. Water is a natural decongestant -Eat and drink things that are easy to swallow, like tea or soup, or popsicles. -Oral rinses such as: Salt water gargles and/or may use topical anesthetic (eg. Chloraseptic spray) or lozenges to relieve dryness or throat pain). -Frequent hand washing or hand official court reporter is one of the best ways to prevent spread of infection. -Using a vaporizer or humidifier at night will also help thin secretions and help with coughing up phlegm. -Follow up with primary care provider in 7-10 days if condition is not improving - For new or worsening symptoms go directly to the nearest ER Patient Language: Prydeinig Prescriptions: No Action Kyleena 17.5 mcg/24 hrs (5 yrs) 19.5 mg Intrauterine Device 1 device INTRAUTERINE ONCE Rx Instructions: as a single dose alprazolam 0.5 mg tablet 0.5 mg PO TID PRN (Reason: anxiety) Qty: 30 0RF lansoprazole 15 mg capsule,delayed release(DR/EC) 15 mg PO .QOD collagen,hydrolyz-ascorbate Ca 1 gram- 10 mg tablet PO multivitamin Tablet 1 tablet PO DAILY ferrous sulfate 325 mg (65 mg iron) tablet 325 mg PO .QOD phentermine 37.5 mg tablet 37.5 mg PO DAILY Qty: 30 0RF Rx Instructions: must administer 30 minutes before or 1-2 hours after breakfast fluconazole 150 mg tablet 150 mg PO DAILY Qty: 1 1RF Rx Instructions: Ok to repeat in 72 hours if needed. doxepin 25 mg capsule 25 mg PO QHS PRN (Reason: insomnia) Qty: 30 2RF Follow-up/Referrals: Claudia Sanchez FNP-C [Primary Care Provider] - 2 Weeks ([facility] care follow up ) Stand Alone Forms: Work/School Release IP Time of Disposition: 09:25
[2024-08-27 08:28] VITALS: BP 131/91; PULSE 103; RESP 16; TEMP 36.6; O2SAT 100
[2024-08-27 09:15] LABS: EDCOVIDSCREEN Negative (Negative); EDINFLUASCREEN Negative (Negative); EDINFLUBSCREEN Negative (Negative)
== END 2024-08-27 09:31 | disposition home or self-care (01) ==
PROVIDERS: Emergency Provider Nurse Practitioner; PCP Clinical Nurse Specialist
DX: J11.1 Influenza due to unidentified influenza virus with other respiratory manifestations (principal); Z20.822 Contact with and (suspected) exposure to COVID-19; K21.9 Gastro-esophageal reflux disease without esophagitis; I10 Essential (primary) hypertension
CPT/HCPCS: 87426; 87804; 99212; G0463

== ENCOUNTER 2024-12-09 13:45 | Outpatient (NON) | payer OTHER, SELFPAY ==
--- OUTSIDE RECORDS SUMMARY | 2024-12-09 13:58 | XMS_ITS | Referral Summary ---
Author Organization [facility] Address [address] [place] [address] Phone Care Team Providers Care Director Of Corporate Real Estate Name Role Phone Claudia Sanchez NP Primary Care Provider [phone] Allergies No known active allergies Medications ferrous sulfate 325 mg (65 mg of elemental iron) tabletIndicatio ns:Iron Deficiency Anemia Take 1 tablet (325 mg total) by mouth daily with breakfast. 90 tablet 3 8 Active cyanocobalamin (Vitamin B-12) 1,000 mcg tabletIndicatio ns:Prevention of Vitamin B12 Deficiency Take 1 tablet (1,000 mcg total) by mouth daily. 30 tablet 11 8 Active copper (PARAGARD) 380 square mm IUD 1 each by intrauterine route once Active Active Problems Problem Noted Date Diagnosed Date Myopia of both eyes 12/02/2023 Assessment & Plan (12/04/2023 8:48 AM CDT): CUFF KNITTER Good ocular health Trace Congenital Cataracts OU LASIK OU with femtosecond laser flap creation Discussed risks of LASIK surgery. Discussed risk of dryness, glare and halo and flap complications. Discussed risk of enhancement surgery and no guarantee of 20/20 vision. Discussed risk of keratectasia. Discussed presbyopia and need for reading glasses. I gave patient ample time to ask questions and reviewed all concerns. LASIK OU [place] Goal OU In House Out of CL's 24 hours. If patient schedules surgery. Recheck refraction on day of surgery and repeat topos. Obesity (BMI 30.0-34.9) 10/21/2017 Assessment & Plan (07/07/2020 3:23 PM TELECOMMUNICATIONS LINE INSTALLER): BMI Follow-up includes: nutrition counseling. Assessment & Plan (10/21/2017 8:12 AM CDT): BMI Follow-up includes: nutrition counseling and exercise counseling. Vitamin D deficiency 10/21/2017 Assessment & Plan (01/10/2018 11:38 AM CDT): Continue Vit D B12 deficiency 10/21/2017 Assessment & Plan (01/10/2018 11:37 AM CDT): Continue suppl Iron deficiency anemia 10/21/2017 Assessment & Plan (01/10/2018 11:38 AM CDT): Continue iron Resolved Problems Problem Noted Date Diagnosed Date Resolved Date depression 10/09/20122017 Overview (11/02/2016): depression Immunizations Immunization Administration Dates Next Due IPV 08/22/2016 Influenza, Quadrivalent, Split, Intramuscular Influenza, Trivalent, IM (MDV) 05/07/2014,2011 Tdap 10/09/2012 Social History Tobacco Use Types Packs/Day Years Used Date Smoking Tobacco: Never Smokeless Tobacco: Never Alcohol Use Standard Drinks/Week Comments No 0 (1 standard drink = 0.6 oz pur e alcohol) PHQ-2 Answer Date Recorded PHQ-2 Total Score (If total score is 3 or more points, staff should administer the PHQ-9) 0 07/07/2020 Comments Unknown Sex and Gender Information Value Date Recorded Sex Assigned at Not on file Legal Sex Female 10:54 PM TELECOMMUNICATIONS LINE INSTALLER Gender Identity Female 07/05/2020 3:21 PM TELECOMMUNICATIONS LINE INSTALLER Sexual Orientation Straight 07/05/2020 3: 21 PM TELECOMMUNICATIONS LINE INSTALLER Last Filed Vital Signs Vital Sign Reading Time Taken Comments Blood Pressure 110/68 08/12/2019 9:38 AM TELECOMMUNICATIONS LINE INSTALLER Pulse 83 08/12/2019 9:38 AM TELECOMMUNICATIONS LINE INSTALLER Temperature 37.3 C (99.1 F) 08/12/2019 9:38 AM TELECOMMUNICATIONS LINE INSTALLER Respiratory Rate 14 08/12/2019 9:38 AM TELECOMMUNICATIONS LINE INSTALLER Oxygen Saturation 98% 08/12/2019 9:38 AM TELECOMMUNICATIONS LINE INSTALLER Inhaled Oxygen Concentration - - Weight 91.2 kg (201 lb) 08/12/2019 9:38 AM TELECOMMUNICATIONS LINE INSTALLER Height 165.1 cm (5' 5 ) 08/12/2019 9:38 AM TELECOMMUNICATIONS LINE INSTALLER Body Mass Index 33.45 08/12/2019 9:38 AM TELECOMMUNICATIONS LINE INSTALLER Plan of Treatment Not on file Procedures Procedure Name Priority Date/Time Associated Diagnosis Comments PAP SMEAR Routine 10/26/2014 from Last 3 Months or Most Recently Relevant to Health Maintenance Results * PAP SMEAR (10/26/2014) Pap smear Normal Historical Provider HEALTH MAINTENANCE Final Result from Last 3 Months or Most Recently Relevant to Health Maintenance Insurance CIG[employer] CIGNA Care Teams Director Of Corporate Real Estate Relationship Specialty Start Date End Date Claudia Sanchez NP [address] [place] [address] PCP - General Cardiovascular Disease 12/02/23
--- OUTSIDE RECORDS SUMMARY | 2024-12-09 13:58 | XMS_ITS | Clinical Summary ---
Author Organization [facility] Address [address] [place] [address] Phone Care Team Providers Care Structural Draftsman Name Role Phone Claudia Sanchez NP Primary Care Provider [phone] Allergies No known active allergies Medications ferrous [...] Assessment & Plan (12/04/2023 8:48 AM CDT): BANKING SERVICES ADVISOR Good ocular health Trace Congenital Cataracts OU [...] questions and reviewed all concerns. LASIK OU [place] Goal OU In House Out of CL's 24 hours. If patient schedules surgery. Recheck refraction on day of surgery and repeat topos. Obesity (BMI 30.0-34.9) 10/21/2017 Assessment & Plan (07/07/2020 3:23 PM THREAD PULLER): BMI Follow-up includes: nutrition counseling. Assessment & [...] Influenza, Trivalent, IM (MDV) 05/07/2014,2011 Tdap 10/09/2012 Surgical History Surgery Date Site/Laterality Comments GASTRIC BYPASS 2008 Gastric bypass CHOLECYSTECTOMY 2008 Cholecystectomy Medical History Medical History Date Comments Hx Other Medical 2006 cosmectic surge ry Family History Medical History Relation Name Comments Brain Aneurysm Maternal Grandmother Cancer Maternal Grandmother Cancer; Brain Aneurysm Mother Hypertension Mother Hypertension; Migraines Mother Migraines; Other Mother brain aneursym; Brain Aneurysm Mother's Sister Relation Name Status Comments Maternal Grandmother Mother Alive Mother's Sister Social History Tobacco Use Types Packs/Day Years [...] on file Legal Sex Female 10:54 PM THREAD PULLER Gender Identity Female 07/05/2020 3:21 PM THREAD PULLER Sexual Orientation Straight 07/05/2020 3: 21 PM THREAD PULLER Obstetrics History Last Filed Vital Signs Vital Sign Reading Time Taken Comments Blood Pressure 110/68 08/12/2019 9:38 AM THREAD PULLER Pulse 83 08/12/2019 9:38 AM THREAD PULLER Temperature 37.3 C (99.1 F) 08/12/2019 9:38 AM THREAD PULLER Respiratory Rate 14 08/12/2019 9:38 AM THREAD PULLER Oxygen Saturation 98% 08/12/2019 9:38 AM THREAD PULLER Inhaled Oxygen Concentration - - Weight 91.2 kg (201 lb) 08/12/2019 9:38 AM THREAD PULLER Height 165.1 cm (5' 5 ) 08/12/2019 9:38 AM THREAD PULLER Body Mass Index 33.45 08/12/2019 9:38 AM THREAD PULLER Plan of Treatment Health Maintenance Due Date Last Done Comments Hepatitis C Screening 1986 Varicella Vaccines (1 of 2 - 13+ 2-dose series) 11/20/1999 Hepatitis B Screening 2004 Regular Well Visit/Exam 18-64 2004 Cervical Cancer Screening 10/27/2015 10/26/2014 Depression Screening 07/07/2021 07/07/2020, 08/12/2019, 01/10/2018, Additional history exists DTaP/Tdap/Td Vaccine (2 - Td or Tdap) 10/09/2022 10/09/2012 Covid-19 Vaccine ( season) 2024 08/18/2020, 07/28/2020 Influenza Vaccine Completed 05/12/2024, , 05/07/2017, Additional history exists HPV Vaccines Aged Out No longer eligi ble based on patient's age to complete this topic Pneumococcal vaccine <65 Aged Out No longer eligible based on patient's age to complete this topic Procedures Procedure Name Priority Date/Time Associated Diagnosis Comments PAP SMEAR Routine 10/26/2014 from Last 3 Months or Most Recently Relevant to Health Maintenance Results * PAP SMEAR (10/26/2014) Pap smear Normal us Historical Provider HEALTH MAINTENANCE Final Result from Last 3 Months or Most Recently Relevant to Health Maintenance Insurance CIGNA CIGNA Care Teams Structural Draftsman Relationship Specialty Start Date End Date Claudia Sanchez NP [address] [place] [address] PCP - General Cardiovascular Disease 12/02/23
--- OUTSIDE RECORDS SUMMARY | 2024-12-09 13:58 | XMS_ITS | Encounter Summary ---
Author Organization [facility] Address [address] [place] [address] Phone Care Team Providers Care Event Decorator Name Role Phone Claudia Sanchez NP Primary Care Provider + [phone] Encounter Details Date Type Department Care Team (Late st Contact Info) Description 10/21/[address] [facility] ProviderKarina MD [address] [place], [place] [id number] Social History Tobacco Use Types Packs/Day Years Used Date Smoking Tobacco: Never Smokeless Tobacco: Never Alcohol Use Standard Drinks/Week Comments No 0 (1 standard drink = 0.6 oz pur e alcohol) Comments Unknown Sex and Gender Information Value Date Recorded Sex Assigned at Not on file Legal Sex Female 10:54 PM DIGITAL COMPOSER Gender Identity Female 07/05/2020 3:21 PM DIGITAL COMPOSER Sexual Orientation Straight 07/05/2020 3: 21 PM DIGITAL COMPOSER documented as of this encounter Plan of Treatment Not on file documented as of this encounter Procedures Procedure Name Priority Date/Time Associated Diagnosis Comments DISCHARGE LABORATORY CUMULATIVE REPORT 10/21/2017 12:00 AM CDT documented in this encounter Results * DISCHARGE LABORATORY CUMULATIVE REPORT (10/21/2017 12:00 AM CDT) Narrative 10/21/2017 12:00 AM CDT Ordered by an unspecified provider. Historical Provider LAB BLOOD ORDERABLES Maddi l Result documented in this encounter Visit Diagnoses Not on filedocumented in this encounter Additional Health Concerns Infection Onset Date Last Indicated Resolved Time COVID: Suspected 11/06/2019 11/06/2019 11/08/2019 7:02 AM CDT Respiratory Infection (RAPHAEL), contact + droplet Comment:Automatically added due to negative COVID-19 result. 11/08/2019 11/08/2019 11/22/2019 3:0 5 AM CDT documented as of this encounter Care Teams Event Decorator Relationship Specialty Start Date End Date Claudia Sanchez NP [address] [place] [address] PCP - General Cardiovascular Disease 12/02/23 documented as of this encounter
[2024-12-09 20:26] LABS: Add Urine Microscopic? YES; Appearance Urine Clear (Clear); Bacteria Urine None Seen /hpf; Bilirubin Urine Negative (Negative); Blood Urine 2+ (Negative); Color Urine Yellow (Yellow); Glucose Urine UA Negative (Negative); Ketones Urine Negative (Negative); Leukocyte Esterase Ur Trace LEU/UL (Negative); Nitrate Urine Negative (Negative); Non Pathogenic Casts 0-2; Protein Urine Negative (Negative); Specific Grav Ur 1.008 (1.001-1.035); Squamous Epithelial Cell Urine Occasional /hpf (Few); Urobilinogen Urine 0.2 mg/dL (<2.0); WBC Urine 0-5 /hpf (0-3); pH Urine 5.5 (5.0-9.0)
== END 2024-12-09 13:46 | disposition home or self-care (01) ==
LOC: ANHGOSHLAB 13:48
PROVIDERS: PCP Internal Medicine; Visit Provider Clinical Nurse Specialist
DX: R30.0 Dysuria (principal)
CPT/HCPCS: 81001

== ENCOUNTER 2025-05-11 15:30 | Outpatient (RCR) | payer OTHER, SELFPAY ==
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
--- NOTE | 2025-03-26 08:52 | OPREHPOC ---
Outpatient Therapy Plan of Care This is a Multidisciplinary Plan of Care that may contain components documented by all disciplines (PT, OT, and ST.) PT Goal 1 Goal / Goal Update Pt will be independent in HEP Pt will verbalize understanding of diagnosis and prognosis Target Visit 8 PT Problem 2 PT Problem #2 Pain PT Goal 1 Goal / Goal Update Pt will report lowest pain rating at 0/10 to show improvement in overall discomfort Target Visit 8 PT Goal 2 Goal / Goal Update Pt will report greatest pain level at 3/10 or less to improve ADLs and activities Target Visit 16 PT Problem 3 PT Problem #3 Impaired Range of Motion PT Goal 1 Goal / Goal Update Pt will demonstrate cervical flexion of 45 degrees for improved mobility Target Visit 8 PT Goal 2 Goal / Goal Update Pt will demonstrate right cervical lateral flexion equal to left lateral flexion Target Visit 16 PT Problem 4 PT Problem #4 Impaired Endurance PT Goal 1 Goal / Goal Update Pt will report ability to maintain appropriate scapular position 50% of her day Target Visit 8
== END 2025-05-12 12:33 | disposition home or self-care (01) ==
LOC: ANHGOSHPT 15:30
PROVIDERS: PCP Internal Medicine
DX: M54.2 Cervicalgia (principal)
CPT/HCPCS: 97014; 97110; 97140; 97162; 97530; G0283

== ENCOUNTER 2025-05-19 08:02 | Outpatient (CLI) | payer OTHER, SELFPAY ==
[2025-05-19 15:12] LABS: Hematocrit 40.6 % (37.0-47.0); Hemoglobin 12.9 g/dL (12.0-15.0); Immature Granulocyte Percent A 0.3 % (0-0.5); Lymphocytes Absolute Auto 1.40 K/mm3 (0.9-3.2); Mean Corpuscular HGB Conc 31.8 g/dl (32-36); Mean Corpuscular Hemoglobin 27.3 pg (26-34); Mean Corpuscular Volume 86.0 fl (80-100); Nucleated Red Blood Cells Absolute Auto 0.000 K/mm3 (0.0-0.012); Nucleated Red Blood Cells Perc 0.0 % (0.0-0.2); Platelet Count Result 203 k/mm3 (150-375); Red Blood Count 4.72 M/mm3 (4.2-5.4); White Blood Count 7.4 K/mm3 (4.5-10.0)
[2025-05-19 15:49] LABS: Alanine Aminotransferase 33 U/L (6-35); Albumin Level 4.4 g/dL (3.5-5.1); Alkaline Phosphatase 85 U/L (38-126); Anion Gap 7 mmol/L (4-12); Aspartate Amino Transferase 40 U/L (14-36); Bilirubin,Total 0.6 mg/dL (0.2-1.3); Blood Urea Nitrogen 12 mg/dL (7-17); Calcium 8.8 mg/dL (8.4-10.2); Carbon Dioxide 26 mmol/L (22-30); Chloride 103 mmol/L (98-107); Cholesterol 174 mg/dL (0-200); Estimated Glomerular Filt Rate > 60; Glucose 72 mg/dL (65-110); HDL Direct 71 mg/dL; Potassium 4.4 mmol/L (3.4-5.0); Sodium 136 mmol/L (137-145); Total Protein 7.3 g/dL (6.3-8.2); Triglycerides 67 mg/dL (<150)
[2025-05-19 16:25] LABS: Thyroid Stimulating Hormone 0.444 uIU/mL (0.465-4.680)
[2025-05-19 17:05] LABS: Vitamin B12 723.0 pg/mL (239-931)
[2025-05-19 17:32] LABS: Free T3 4.89 pg/mL (2.32-6.09); Free T4 Free Thyroxine 1.24 ng/dL (0.78-2.19)
[2025-05-19 18:04] LABS: Ferritin 10.20 ng/mL (6.24-137)
[2025-05-19 19:12] LABS: Hemoglobin A1C 4.9 % (<5.7)
== END 2025-05-19 08:03 | disposition home or self-care (01) ==
LOC: ANHGOSHLAB 08:03
PROVIDERS: PCP Internal Medicine; Visit Provider Nurse Practitioner Family
DX: F41.9 Anxiety disorder, unspecified (principal); R53.83 Other fatigue; R73.01 Impaired fasting glucose; E53.9 Vitamin B deficiency, unspecified; E55.9 Vitamin D deficiency, unspecified; E66.9 Obesity, unspecified
CPT/HCPCS: 36415; 80053; 80061; 82306; 82607; 82728; 83036; 84439; 84443; 84481; 85025